=== PATIENT | female | born 2000 | race Caucasian/White ===

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

== ENCOUNTER 2021-03-07 12:21 | Emergency (ER) | payer BC ==
[~2021-03-07] VITALS: Ht 165.1 cm; Wt 78.0 kg
[~2021-03-07 12:21] MED LIST changes: +BENADRYL 50MG C50 MG PO; +PERMETHRIN5 % EX
[2021-03-07 13:52] VITALS: BP 119/70
== END 2021-03-07 13:52 | disposition home or self-care (01) | DRG 153 ==
LOC: ED 12:21
DX: J06.9 Acute upper respiratory infection, unspecified (principal); J45.901 Unspecified asthma with (acute) exacerbation; F17.200 Nicotine dependence, unspecified, uncomplicated; Z87.440 Personal history of urinary (tract) infections; Z20.822 Contact with and (suspected) exposure to COVID-19

== ENCOUNTER 2021-12-01 11:06 | Emergency (ER) | payer BC ==
[2021-12-01] VITALS (7 sets, daily range): BP systolic 89–120; BP diastolic 65–78
[~2021-12-01] VITALS: Ht 162.6 cm; Wt 80.9 kg
[2021-12-01] MEDS ORDERED: GABAPENTIN100 MG PO (11:20)
[2021-12-01] MEDS ORDERED: HYDROXYCHLOR200 M1 PO (11:20)
[2021-12-01] MEDS ORDERED: METHOTREXATE S2.5 MG PO (11:21)
[2021-12-01] MEDS ORDERED: FOLIC ACID1 MG PO (11:22)
[2021-12-01] MEDS ORDERED: DULOXETINE HCL20 MG (11:22)
[2021-12-01] MEDS ORDERED: VITAMIN D31000 UNI1 PO (11:23)
[2021-12-01 11:34] LABS: HEMATOCRIT 35.2 % (37.0-47.0); HEMOGLOBIN 10.8 g/dl (12.0-16.0); IMMATURE GRANULOCYTES 0.3 % (0.0-5.0); MEAN CORPUSCULAR HGB CONC 30.7 g/dL CAL (32.0-36.0); NEUT# 3.25 thou/uL (2.00-7.15); RED BLOOD COUNT 4.92 mill/uL (4.20-5.60); RED CELL DISTRI WIDTH 16.5 % (11.5-15.5)
[2021-12-01 11:35] LABS: MEAN CELL VOLUME 71.5 fL CALC (80.0-100.0)
[2021-12-01 11:48] LABS: ALBUMIN 4.2 g/dL (3.2-5.0); ALKALINE PHOSPHATASE 60 u/l (38-126); ANION GAP 14 (6-22 (CALC)); BILIRUBIN, TOTAL 0.4 mg/dL (0.0-1.4); BUN 5 mg/dL (7-17); BUN/CREATININE RATIO 7 (12-20 (CALC)); CARBON DIOXIDE 23 mmol/l (22-30); CHLORIDE 106 mmol/l (95-108); CREATININE 0.8 mg/dL (0.5-1.0); GFR FOR AFR.AMER. > 60 ML/MIN (>=60 (CALC)); GFR OTHER RACES > 60 ML/MIN (>=60 (CALC)); POTASSIUM 4.1 mmol/l (3.5-5.1); SGOT/AST 29 u/l (14-36); SODIUM 140 mmol/l (137-146); TOTAL PROTEIN 7.5 g/dL (6.3-8.2)
== END 2021-12-01 13:21 | disposition home or self-care (01) | DRG 313 ==
LOC: ED 11:06
PROVIDERS: Family Medicine
DX: R07.9 Chest pain, unspecified (principal); N63.10 Unspecified lump in the right breast, unspecified quadrant; M35.9 Systemic involvement of connective tissue, unspecified; F17.210 Nicotine dependence, cigarettes, uncomplicated

== ENCOUNTER 2022-11-03 12:53 | Emergency (ER) | payer SELFPAY ==
[~2022-11-03] VITALS: Ht 162.6 cm; Wt 77.1 kg
[~2022-11-03 12:53] MED LIST changes: +DULOXETINE HCL20 MG; +FOLIC ACID1 MG PO; +GABAPENTIN100 MG PO; +HYDROXYCHLOR200 M1 PO; +METHOTREXATE S2.5 MG PO; +VITAMIN D31000 UNI1 PO
[2022-11-03] MEDS ORDERED: ONDANSETRON4 MG PO (14:18)
[2022-11-03 14:53] VITALS: BP 110/62
== END 2022-11-03 14:53 | disposition home or self-care (01) | DRG 179 ==
LOC: ED 12:53
DX: U07.1 COVID-19 (principal); J02.9 Acute pharyngitis, unspecified; R05.9 Cough, unspecified; R09.81 Nasal congestion; H92.09 Otalgia, unspecified ear; M35.9 Systemic involvement of connective tissue, unspecified; F17.200 Nicotine dependence, unspecified, uncomplicated